=== PATIENT | female | born 1975 ===

== ENCOUNTER 2020-09-11 15:17 | Outpatient (REF) | payer SELFPAY | END 2020-09-11 15:18 | disposition home or self-care (01) | LOC: HO.SCI 15:17 | PROVIDERS: Visit Provider Internal Medicine | DX: Z13.89 Encounter for screening for other disorder (principal) ==

== ENCOUNTER 2020-11-26 08:46 | Outpatient (REF) | payer OTHER, SELFPAY ==
--- NOTE | ~2020-11-26 | MM_ITS ---
EXAMINATION: MM SCREENING DIGITAL BREAST TOMOSYNTHESIS, BILATERAL CLINICAL INFORMATION: Screening. Asymptomatic. Age 45. No prior breast imaging. No known family history breast cancer. The lifetime risk of breast cancer based on the Tyrer-Cuzick Model is 6%. COMPARISON: None (current study represents initial baseline exam). TECHNIQUE: Digital mammography is performed in craniocaudal and mediolateral oblique views along with computer-aided detection (CAD). Digital breast tomosynthesis is performed in implant-displaced craniocaudal and implant-displaced mediolateral oblique views along with computer-aided detection (CAD). Synthesized 2D images are generated from the tomosynthesis. FINDINGS: There are scattered areas of fibroglandular density (ACR BI-RADS breast composition Category b). There are bilateral implants. The implant contours are smooth. The breast parenchyma shows no significant mass or architectural abnormality or abnormal calcifications. The axilla and skin contours are unremarkable. MM/MM tomosynthesis screen imp BI IMPRESSION: No mammographic evidence of malignancy. ASSESSMENT: BI-RADS 1: Negative RECOMMENDATION: Routine annual mammography screening. This patient's information was entered into a reminder system with a target due date for their next mammogram.
== END 2020-11-26 08:47 | disposition home or self-care (01) ==
LOC: HO.MAMMO 08:46
PROVIDERS: PCP Internal Medicine; Visit Provider Internal Medicine
DX: Z12.31 Encounter for screening mammogram for malignant neoplasm of breast (principal)
CPT/HCPCS: 77063; 77067